=== PATIENT | female | born 1960 | race Caucasian/White ===

== ENCOUNTER → 2021-02-24 | Day surgery (SDC) | payer MEDICARE, OTHER ==
[~2021-02-24] MED LIST: Clindamycin Phosphate in D5W 600 MG in Premix Bag 1 BAG IV ONE; Dexamethasone 4 MG/ML SDV ONE; Flumazenil 0.1 MG/ML 5 ML MDV ONE; Glycopyrrolate 0.2 MG/ML SDV ONE; HYDROmorphone 1 MG/ML Syringe IVPUSH STA; Ketamine 200 MG/20 ML MDV ONE; Midazolam 1 MG/ML 2 ML SDV ONE; Neostigmine Methylsulfate 10 MG/10 ML MDV ONE; Ondansetron 4 MG/2 ML SDV ONE; Phenylephrine 1% 10 MG/ML SDV ONE; Propofol 200 MG/20 ML SDV ONE; Rocuronium 50 MG/5 ML Vial ONE; ePHEDrine 50 MG/ML SDV ONE; fentaNYL 100 MCG/2 ML SDV ONE
[2021-02-24] MEDS: Lactated Ringers 1,000 ML IV SCH ×2 (13:16→19:35)
[2021-02-24] MEDS: HYDROmorphone 1 MG/ML Syringe IVPUSH PRN ×3 (19:34→22:53)
[2021-02-25] MEDS: HYDROmorphone 1 MG/ML Syringe IVPUSH PRN ×5 (01:01→10:55)
--- NOTE | 2021-02-25 07:28 | OR ---
DATE OF OPERATION: 02/24/2021 PREOPERATIVE DIAGNOSIS: CHRONIC CHOLECYSTITIS, CHOLELITHIASIS. POSTOPERATIVE DIAGNOSIS: CHRONIC CHOLECYSTITIS, CHOLELITHIASIS. SURGEON: Dwayne Dawkins MD PROCEDURE: LAPAROSCOPIC CHOLECYSTECTOMY. ANESTHESIA: General. ESTIMATED BLOOD LOSS: Minimum. SPECIMEN: Gallbladder and stone. INDICATIONS: This 60-year-old female has ultrasound-proven stone in the gallbladder, and she has postprandial nausea and vomiting. She does have chronic pain syndrome, and she also has other major medical problems, especially regarding diverticulosis. FINDINGS: Normal-appearing gallbladder with one small 1 cm stone. She does have some intraabdominal adhesions, particularly the omentum down into the pelvis. I did not try to take any of these down because of her anticoagulation state. DESCRIPTION OF PROCEDURE: After adequate preparation, an alternate access port was used in the left upper quadrant. A Veress needle was placed through a 5 mm incision and then the abdomen insufflated. A 5 mm trocar and laparoscope were then introduced into the abdomen. Three other trocars were placed under direct vision. There was no organ injury or bile or bleeding. Examination of the abdomen did show some adhesions in the lower abdomen and a band of adhesions along the left colic gutter, but these should be of no consequence, and they are not causing her symptoms. Appearance of the liver and gallbladder was also normal. The gallbladder was elevated over the liver bed, and the cystic triangle structures dissected free. These were individually clipped and divided. The gallbladder was then taken off the liver bed using blunt, sharp, and Bovie dissection. There was no spillage of bile or stones. The gallbladder was placed in a sterile retrieval bag and brought out through the epigastric trocar site. No dilation of the fascia was required. The abdomen was then irrigated in the right upper quadrant, suctioned clear. No other abnormalities were noted. The air was removed from the abdomen and the trocars removed and the skin closed with Vicryl. BPB/MODL /[id number]
--- NOTE | 2021-02-25 08:27 | PCM.SN.2 ---
- Free Text/Narrative Note: Stable POD#1. Moderate pain but controlled with medication. Wounds clean and dry. PO liquid tolerated well. Can discharge today. Patient has own pain medication at home. No activity or diet restrictions. FU the [facility] in [place] as needed.
== END | disposition home or self-care (01) ==
LOC: CC.SDS 10:57
PROVIDERS: ATTEND Surgery
DX: K80.10 Calculus of gallbladder with chronic cholecystitis without obstruction (principal); J44.9 Chronic obstructive pulmonary disease, unspecified; I25.10 Atherosclerotic heart disease of native coronary artery without angina pectoris; I10 Essential (primary) hypertension; K21.9 Gastro-esophageal reflux disease without esophagitis; G43.909 Migraine, unspecified, not intractable, without status migrainosus; F17.200 Nicotine dependence, unspecified, uncomplicated; I73.9 Peripheral vascular disease, unspecified; Z88.1 Allergy status to other antibiotic agents; Z88.8 Allergy status to other drugs, medicaments and biological substances; Z79.82 Long term (current) use of aspirin; Z79.899 Other long term (current) drug therapy; Z79.01 Long term (current) use of anticoagulants; Z98.890 Other specified postprocedural states; Z90.49 Acquired absence of other specified parts of digestive tract
CPT/HCPCS: 47562; J1100; J1170; J2250; J2370; J2405; J2704; J2710; J3010; J3490; J7030; J7120; 00790; 88304

== ENCOUNTER → 2021-04-14 | Day surgery (SDC) | payer MEDICARE, OTHER ==
[~2021-04-14] MED LIST changes: +Benzocaine 20% Topical Spray UD MUCMEM ONE; -Clindamycin Phosphate in D5W 600 MG in Premix Bag 1 BAG IV ONE; -Dexamethasone 4 MG/ML SDV ONE; -Flumazenil 0.1 MG/ML 5 ML MDV ONE; -Glycopyrrolate 0.2 MG/ML SDV ONE; -HYDROmorphone 1 MG/ML Syringe IVPUSH STA; -Ketamine 200 MG/20 ML MDV ONE; +Lactated Ringers 1,000 ML IV SCH; +Midazolam 1 MG/ML 2 ML SDV IV ONE; -Neostigmine Methylsulfate 10 MG/10 ML MDV ONE; -Ondansetron 4 MG/2 ML SDV ONE; -Phenylephrine 1% 10 MG/ML SDV ONE; -Propofol 200 MG/20 ML SDV ONE; -Rocuronium 50 MG/5 ML Vial ONE; -ePHEDrine 50 MG/ML SDV ONE; -fentaNYL 100 MCG/2 ML SDV ONE
--- NOTE | 2021-04-14 08:52 | OR ---
DATE OF OPERATION: 04/14/2021 PREOPERATIVE DIAGNOSIS: POSTPRANDIAL NAUSEA AND VOMITING. POSTOPERATIVE DIAGNOSIS: POSTPRANDIAL NAUSEA AND VOMITING. SURGEON: Dwayne Dawkins MD PROCEDURE: ESOPHAGOGASTRODUODENOSCOPY WITH BIOPSY OF THE DUODENUM AND GASTRIC ANTRUM. ANESTHESIA: Conscious sedation. SPECIMEN: Duodenal biopsy and gastric antrum biopsy. FINDINGS: Small hiatal hernia. Otherwise, no evidence of gastritis, ulcer formation, or masses. No evidence of bleeding or strictures. INDICATIONS: This 60-year-old female has multiple episodes of postprandial nausea and vomiting. She has had a workup that has been negative to date. Cholecystectomy done 2 months ago did not improve much of her symptoms. She has multiple episodes of vomiting after eating. DESCRIPTION OF PROCEDURE: After adequate preparation, a gastroscope was inserted into the esophagus. This was passed down to the distal esophagus. She had a small hiatal hernia, but this is of no consequence. There is no evidence of reflux esophagitis or strictures. Her symptoms do not revolve around dysphagia which would be related to the hiatal hernia anyway. The scope was advanced into the stomach. Both forward and retroflexed views were done and are normal. She does not have any masses, growths, or ulcers in the stomach. The scope was advanced through the pylorus which was widely patent and the 1st, 2nd, and 3rd part of the duodenum were also normal. Biopsy of the duodenal mucosa was taken on withdrawal of the scope back into the stomach and H pylori biopsy was done in the antrum as well as permanent sections. No other abnormalities were noted. Air was suctioned from the stomach and the scope removed. YFN/KELSEA /[id number]
== END ==
LOC: CC.SDS 07:12
PROVIDERS: ATTEND Surgery
DX: K31.89 Other diseases of stomach and duodenum (principal); I78.1 Nevus, non-neoplastic; K44.9 Diaphragmatic hernia without obstruction or gangrene; J44.9 Chronic obstructive pulmonary disease, unspecified; I25.10 Atherosclerotic heart disease of native coronary artery without angina pectoris; K21.9 Gastro-esophageal reflux disease without esophagitis; I10 Essential (primary) hypertension; G43.909 Migraine, unspecified, not intractable, without status migrainosus; F17.210 Nicotine dependence, cigarettes, uncomplicated; G89.29 Other chronic pain; M54.59 Other low back pain; F32.9 Major depressive disorder, single episode, unspecified; Z88.1 Allergy status to other antibiotic agents; Z88.8 Allergy status to other drugs, medicaments and biological substances; Z88.5 Allergy status to narcotic agent; Z79.899 Other long term (current) drug therapy; Z79.82 Long term (current) use of aspirin; Z90.49 Acquired absence of other specified parts of digestive tract; Z98.890 Other specified postprocedural states
CPT/HCPCS: 43239; 87081; A9270; J2250; J7120; 88305